=== PATIENT | male | born 1985 | race Caucasian/White ===

== ENCOUNTER 2024-05-14 20:26 | Emergency (ER) | payer BC, SELFPAY ==
[2024-05-14 20:36] VITALS: BP 138/80; PULSE 73; RESP 16; TEMP 36.7; O2SAT 98; BMI 20.7
--- NOTE | 2024-05-14 20:52 | ED_ITS ---
HPI - Recheck/Abnormal Lab/Rx 2 General: Chief Complaint: Recheck/Abnormal Lab/Rx Stated Complaint: Diabetic Time Seen by Provider: 05/14/24 20:49 History of Present Illness: 38-year-old male patient comes in today for complaints of lightheadedness and nausea. Patient reports an episode 2 weeks ago and then episode today. Patient has been working hard to maintain his blood glucose and try to control it. Patient had lab work done a week ago and noticed that his hemoglobin A1c was 9.3 which was up from 8 3 months before. Patient appears nontoxic. Patient reports no pain or discomfort. Related Data Allergies Allergy/AdvReac Type Severity Reaction Status Date / Time No Known Allergies Allergy Verified 05/14/24 20:40 Review of Systems 2 General: Reports: 10 or more systems reviewed and unremarkable except in HPI and below GI: Reports: nausea Physical Exam 2 Const: COMMON NORMALS: alert HENMT: COMMON NORMALS: normocephalic HEAD & SCALP: normocephalic Neck/C-Spine: COMMON NORMALS: full ROM Resp: COMMON NORMALS: normal respiratory effort Cardio: COMMON NORMALS: regular rate RATE: regular rate GI: COMMON NORMALS: Soft to palpation AUSCULTATION: Yes normoactive bowel sounds PALPATION: Yes Soft to palpation and No Tenderness to palpation present (GI) Back/Pelvis: COMMON NORMALS: thoracic and lumbar spine normal to inspection Extremity: COMMON NORMALS: no pedal edema Neuro: SENSORIUM/ORIENTATION: Yes alert Skin: COMMON NORMALS: turgor normal GENERAL SKIN EXAM: turgor normal Course 2 Vital Signs: Vital signs: Vital Signs Temperature 98.0 F 05/14/24 20:36 Pulse Rate 68 05/14/24 21:12 Respiratory Rate 16 05/14/24 21:12 Blood Pressure 129/90 05/14/24 21:12 Pulse Oximetry 98 05/14/24 21:12 Oxygen Delivery Me thod Room Air 05/14/24 21:12 [facility] - Recheck/Abnormal Lab/Rx Medical Decision Making 38-year-old male patient comes in today for complaints of nausea and lightheadedness and abnormalities with blood sugar. Patient appears nontoxic. Patient appears in no acute distress. Respirations are even lungs are clear to auscultation. Differential diagnosis includes but not limited to hyperglycemia, diabetic ketoacidosis, dehydration, electrolyte imbalance, gallbladder disease. Lab Data 05/14/24 21:24 05/14/24 21: Laboratory Results WBC 6.98 10^3/uL (3.29-11.43) 05/14/24: RBC 4.75 10^6/uL (3.85-5.65) 05/14/24 21: Hgb 14.30 g/dL (11.27-16.99) 05/14/24: Hct 41.8 % (37-53) 05/14/24: MCV 88.0 fl (82-101) 05/14/24 21: MCH 30.1 pg (27-33) 05/14/24: MCHC 34.2 g/dL (30-55) 05/14/24: RDW 11.7 % (12.1-15.1) L 05/14/24: Plt Count 261 10^3/cmm (157-399) 05/14/24: MPV 10.8 fL (7.4-10.4) H 05/14/24: Neut % (Auto) 63.1 % 05/14/24: Lymph % (Auto) 26.4 % 05/14/24: [place] % (Auto) 8.7 % 05/14/24: Eos % (Auto) 1.1 % 05/14/24: Baso % (Auto) 0.6 % 05/14/24: Neut # (Auto) 4.40 10^3/uL (1.8-7.7) 05/14/24: Lymph # (Auto) 1.8 10^3/uL (0.8-4.8) 05/14/24: [place] # (Auto) 0.6 10^3/uL (0.2-0.9) 05/14/24: Eos # (Auto) 0.1 10^3/uL (0.0-0.8) 05/14/24: Baso # (Auto) 0.0 10^3/uL (0.0-0.1) 05/14/24: Nucleated RBC % (auto) 0 % 05/14/24: Nucleated RBCs # 0.0 /100WBC 05/14/24 21:24 Sodium 138 mmol/L (136-145) 05/14/24 21:24 Potassium 4.3 mmol/L (3.5-5.1) 05/14/24 21:24 Chloride 99 mmol/L (98-107) 05/14/24 21:24 Carbon Dioxide 29 mmol/L (22-29) 05/14/24 21:24 Anion Gap 14.3 (5-19) 05/14/24 21:24 BUN 5 mg/dL (6-20) L 05/14/24 21:24 Creatinine 0.6 mg/dL (0.7-1.2) L 05/14/24 21:24 GFR Calculation 150.0 mL/min (90-130) H 05/14/24 21:24 Glucose 217 mg/dL (65-115) H 05/14/24 21:24 POC Glucose 263 mg/dL (70-110) H 05/14/24 21:17 Calculated Osmolality 290 mOsm/kg (285-295) 05/14/24 21:24 Calcium 9.5 mg/dL (8.5-10.5) 05/14/24 21:24 Total Bilirubin 0.4 mg/dL (0.15-1.2) 05/14/24 21:24 AST 14 U/L (0-40) 05/14/24 21:24 ALT 12 U/L (0-41) 05/14/24 21:24 Alkaline Phosphatase 81 U/L (40-130) 05/14/24 21:24 Total Protein 7.3 g/dL (6.6-8.7) 05/14/24 21:24 Albumin 4.8 g/dL (3.5-5.2) 05/14/24 21:24 Globulin 2.5 g/dL (1.3-4.6) 05/14/24 21:24 Lipase 21 U/L (13-60) 05/14/24 21:24 Urine Color Yellow (Yellow) 05/14/24 21:52 Urine Appearance Clear (CLEAR) 05/14/24 21:52 Urine pH 7.0 (5-7) 05/14/24 21:52 Ur Specific [place] 1.022 (1.005-1.030) 05/14/24 21:52 Urine Protein Negative (Negative) 05/14/24 21:52 Urine Glucose (UA) 3+ (Normal) H 05/14/24 21:52 Urine Ketones Negative (Negative) 05/14/24 21:52 Urine Blood Negative (Negative) 05/14/24 21:52 Urine Nitrate Negative (Negative) 05/14/24 21:52 Urine Bilirubin Negative (Negative) 05/14/24 21:52 Urine Urobilinogen 1.0 mg/dL (Negative) 05/14/24 21:52 Ur Leukocyte Esterase Negative (Negative) 05/14/24 21:52 Urine RBC 0-2 /hpf (0-2) 05/14/24 21:52 Urine WBC 0-5 /hpf (0-5) 05/14/24 21:52 Ur Squamous Epith Cells 0-5 /hpf (0-5) 05/14/24 21:52 Amorphous Sediment Not Reportable 05/14/24 21:52 Urine Bacteria None seen /hpf (NONE) 05/14/24 21:52 Hyaline Casts 0-4 /lpf H 05/14/24 21:52 Serum Ketones Negative (Negative) 05/14/24 21:24 No radiology studies performed this visit EKG Data EKG 1: I personally reviewed and interpreted this EKG as follows: EKG interpretation date: 05/14/24 EKG interpretation time: 22:33 Prior EKG tracings: not available for review Interpretation: EKG shows a sinus rhythm with a regular rate at [address] elevation or ectopy is noted. No prior exam was available for comparison. Computer generated interpretation: Sinus bradycardia. No previous EKG available for comparison. Discharge Plan Discharge Patient Disposition: Home Clinical Impression: Diabetes mellitus Qualifiers: Diabetes mellitus type: type 2 Diabetes mellitus long term acute care registered nurse insulin use: with long-term use Diabetes mellitus complication status: with other specified complication Qualified Code(s): E11.69 - Type 2 diabetes mellitus with other specified complication Condition: Stable Discharge Orders: Discharge ED (Routine); Ordered 05/14/24 Ordered By: Antnoi Champagne Discharge Diet: Usual diet Discharge Activity: Increase activity as tolerated Patient Instructions: Diabetic Hyperglycemia (ED) Activity Restrictions/Additional Instructions: Monitor carbohydrate intake. Talk with primary care regarding further evaluation and treatment. Return to ER for worsening symptoms such as high fever, shortness of breath, chest pain. Thank you for choosing [facility] for your healthcare needs today. Please realize that you were seen in the emergency department and that we are providing you with an emergency medical screening exam and this may not be a complete and all exclusive of all testing and/or medical workup we may need to determine your element or severity of your illness. It is very important that you follow-up as instructed with your primary care provider or specialist for the additional evaluation and to discuss your medical treatment plan. You may return to the emergency department should you have concerns or if your condition changes or worsens in any way. Coding Level of Care Code ED [employer] Instructor for Zara Felder
[2024-05-14 21:12] VITALS: BP 129/90; PULSE 68; RESP 16; O2SAT 98
[2024-05-14 21:25] LABS: Glucose Point of Care 263 mg/dL (70-110)
[2024-05-14 21:28] LABS: Basophils % 0.6 %; Eosinophils # 0.1 10^3/uL (0.0-0.8); Eosinophils % 1.1 %; Hematocrit 41.8 % (37-53); Lymphocytes # 1.8 10^3/uL (0.8-4.8); Lymphocytes % 26.4 %; Mean Corpuscular HGB Conc 34.2 g/dL (30-55); Mean Corpuscular Hemoglobin 30.1 pg (27-33); Mean Platelet Volume 10.8 fL (7.4-10.4); Monocytes # 0.6 10^3/uL (0.2-0.9); Monocytes % 8.7 %; Neutrophils % 63.1 %; Nucleated Red Blood Cells % 0 %; Platelet Count 261 10^3/cmm (157-399); Red Blood Count 4.75 10^6/uL (3.85-5.65); Red Cell Distribution Width 11.7 % (12.1-15.1); White Blood Count 6.98 10^3/uL (3.29-11.43)
[2024-05-14 21:38] LABS: Ketone (Acetest) Serum Negative (Negative)
[2024-05-14 21:46] LABS: Alanine Aminotransferase 12 U/L (0-41); Albumin Level 4.8 g/dL (3.5-5.2); Alkaline Phosphatase 81 U/L (40-130); Anion Gap 14.3 (5-19); Aspartate Amino Transferase 14 U/L (0-40); Blood Urea Nitrogen 5 mg/dL (6-20); Calcium 9.5 mg/dL (8.5-10.5); Carbon Dioxide 29 mmol/L (22-29); Chloride 99 mmol/L (98-107); Creatinine Clr Calc Pharmacy 168.5157; Globulin 2.5 g/dL (1.3-4.6); Glucose 217 mg/dL (65-115); Lipase 21 U/L (13-60); Osmolality Calculated 290 mOsm/kg (285-295); Potassium 4.3 mmol/L (3.5-5.1); Sodium 138 mmol/L (136-145); Total Bilirubin 0.4 mg/dL (0.15-1.2); Total Protein 7.3 g/dL (6.6-8.7)
[2024-05-14 21:54] LABS: Charge for UA Resulting for Rev
[2024-05-14] MEDS: sodium chloride 0.9% 1,000 ML 999 ML IV (21:54)
[2024-05-14 21:57] LABS: Bilirubin Urine Negative (Negative); Blood Urine Negative (Negative); Glucose Urine UA 3+ (Normal); Ketones Urine Negative (Negative); Leukocyte Esterase Urine Negative (Negative); Nitrate Urine Negative (Negative); Protein Urine Negative (Negative); Specific Gravity, Urine 1.022 (1.005-1.030); Urine Appearance Clear (CLEAR); Urine Color Yellow (Yellow)
[2024-05-14 22:02] LABS: Bacteria Urine None Seen /hpf; Hyaline Casts Urine 0-4 /lpf; RBC Urine 0-2 /hpf (0-2); Squamous Epithelial Cell Urine 0-5 /hpf (0-5); WBC Urine 0-5 /hpf (0-5)
--- NOTE | 2024-05-14 22:25 | ECG_ITS ---
[facility] Test Date: 2024-05-14 Pat Name: Moon Torres Department: Room: Gender: Male Mobile Lounge Driver: : [id number] Requested By: Antoni Bland Order Number: [id number] Karol MD: Tiana Moise M.D. Measurements Intervals [place] Rate: 54 P: 73 UT: 163 QRS: 67 QRSD: 100 T: 58 QT: 398 QTc: 380 Interpretive Statements SINUS BRADYCARDIA No previous ECG available for comparison Electronically Signed On 05-15-2024 0:21:23 CDT by Tiana Moise M.D. [id number]
[2024-05-14 22:34] VITALS: BP 105/80; PULSE 58; RESP 14; O2SAT 98
[2024-05-14 22:45] VITALS: BP 105/80; PULSE 58; RESP 14; TEMP 36.7; O2SAT 98
== END 2024-05-14 22:45 | disposition home or self-care (01) ==
PROVIDERS: Emergency Provider Nurse Practitioner Family
DX: E11.69 Type 2 diabetes mellitus with other specified complication (principal); R00.1 Bradycardia, unspecified
CPT/HCPCS: 36415; 36416; 80053; 81003; 81015; 82009; 82962; 83690; 85025; 93005; 99284; J7030